=== PATIENT | male | born 1995 | race Caucasian/White ===

== ENCOUNTER 2019-03-21 14:26 | Emergency (ER) | payer OTHER ==
[~2019-03-21] VITALS: Ht 172.7 cm; Wt 63.5 kg
[2019-03-21 14:51] VITALS: BP 125/72
--- NOTE | 2019-03-21 15:37 | NUR ---
Patient discharged to home in stable condition. Written and verbal after care instructions given. Patient verbalizes understanding of instruction.
== END 2019-03-21 15:37 | disposition home or self-care (01) ==
LOC: ER 14:26
DX: H61.22 Impacted cerumen, left ear (principal)

== ENCOUNTER 2019-05-31 12:44 | Emergency (ER) | payer OTHER ==
[~2019-05-31] VITALS: Ht 175.3 cm; Wt 57.6 kg
--- NOTE | 2019-05-31 12:45 | NUR ---
Souleymane bennett in [facility] - 05/31/19 at [address] PERSAUD AT BEDSIDE
--- NOTE | 2019-05-31 12:54 | NUR ---
Patient arrived at unit ambulatory. a/o x 4, no acute distress. c/o left shoulder pain, reports he had a syncopal episode 3am today, chin abrasion, per patient it happens once every 3 years.
--- NOTE | 2019-05-31 12:57 | NUR ---
FRACISCO MORALES AT BEDSIDE
[2019-05-31 13:22] LABS: BASOPHILS % (AUTO) 0.4 % (0.0-2.0); EOSINOPHILS % (AUTO) 0.3 % (0.0-6.0); HEMATOCRIT 47 % (39-51); HEMOGLOBIN 16.2 g/dL (13.5-17.5); LYMPHOCYTES % (AUTO) 9.2 % (20.0-44.0); MEAN CORPUSCULAR HGB CONC 34 g/dl (31.0-36.0); MEAN CORPUSCULAR VOLUME 88 fL (80-96); MONOCYTES # (AUTO) 0.9 /CMM (0.1-1.30); MONOCYTES % (AUTO) 8.3 % (2.0-12.0); NEUTROPHILS # (AUTO) 8.5 /CMM (1.8-8.9); NEUTROPHILS % (AUTO) 81.8 % (43.0-81.0); PLATELET COUNT (AUTO) 273 /CMM (150-450); RED BLOOD CELL COUNT(AUTO) 5.37 MIL/uL (4.5-6.0); WHITE BLOOD COUNT (AUTO) 10.4 K/uL (4.3-11.0)
--- NOTE | 2019-05-31 13:25 | NUR ---
UNLOAD ASSOCIATE AT BEDSIDE
[2019-05-31] MEDS ORDERED: IV NS 0.9% 1,000 ML BAG IV ONE (13:30)
[2019-05-31 13:35] LABS: CALCIUM, SERUM 9.1 mg/dL (8.5-10.1); CREATININE 0.9 mg/dL (0.6-1.3); POTASSIUM 3.9 mmol/L (3.5-5.1)
--- NOTE | 2019-05-31 13:55 | NUR ---
SHOULDER SLING APPLIED BY AIR CONDITIONING MECH[employer]IC [employer]RIAL.
[2019-05-31 13:56] VITALS: BP 124/78
--- NOTE | 2019-05-31 13:56 | NUR ---
IV removed. Catheter intact and site benign. Pressure and 4x4 applied to site. No bleeding noted. Patient discharged to home in stable condition. Written and verbal after care instructions given. Patient verbalizes understanding of instruction.
== END 2019-05-31 13:59 | disposition home or self-care (01) ==
LOC: ER 12:49
DX: S00.81XA Abrasion of other part of head, initial encounter (principal); M25.512 Pain in left shoulder; R55 Syncope and collapse; W18.39XA Other fall on same level, initial encounter; Y93.89 Activity, other specified; Y92.89 Other specified places as the place of occurrence of the external cause; Y99.8 Other external cause status
CPT/HCPCS: 36415; 73030; 80048; 85025; 93005; 96360; 99284; J7030

== ENCOUNTER 2019-10-23 00:47 | Emergency (ER) | payer OTHER ==
[~2019-10-23] VITALS: Ht 172.7 cm; Wt 63.5 kg
--- NOTE | 2019-10-23 00:50 | NUR ---
PT AAOX4. BIB S/O C/O XANAX 1MG TAB APPROX 40TABS AND POSSIBLE HEROIN USE PER S/O. PT STATED HE WAS UNDER DOSED AND WOULD LIKE A PRESCRIPTION FOR MORE XANAX. PLACED ON MONITOR AND PULSE OX. NO NEURO DEFICITI, ABLE TO AMBULATE AND SPEAK IN FULL SENTENCES.
--- NOTE | 2019-10-23 01:02 | NUR ---
[facility]
[2019-10-23 01:19] LABS: BASOPHILS % (AUTO) 0.3 % (0.0-2.0); EOSINOPHILS % (AUTO) 1.6 % (0.0-6.0); HEMATOCRIT 41 % (39-51); HEMOGLOBIN 13.7 g/dL (13.5-17.5); LYMPHOCYTES # (AUTO) 1.6 /CMM (0.8-4.8); LYMPHOCYTES % (AUTO) 30.6 % (20.0-44.0); MEAN CORPUSCULAR HGB CONC 34 g/dl (31.0-36.0); MEAN CORPUSCULAR VOLUME 88 fL (80-96); MONOCYTES # (AUTO) 0.5 /CMM (0.1-1.30); MONOCYTES % (AUTO) 8.9 % (2.0-12.0); NEUTROPHILS % (AUTO) 58.6 % (43.0-81.0); PLATELET COUNT (AUTO) 210 /CMM (150-450); RED BLOOD CELL COUNT(AUTO) 4.63 MIL/uL (4.5-6.0); WHITE BLOOD COUNT (AUTO) 5.1 K/uL (4.3-11.0)
--- NOTE | 2019-10-23 01:30 | NUR ---
AWAITING URINE SAMPLE FROM PT.
[2019-10-23 01:42] LABS: CALCIUM, SERUM 8.7 mg/dL (8.5-10.1); CARBON DIOXIDE 31 mmol/L (21-32); CHLORIDE 103 mmol/L (98-107); CREATININE 0.9 mg/dL (0.6-1.3); GLUCOSE 96 mg/dL (74-106); SODIUM SERUM 140 mmol/L (136-145); UREA NITROGEN, BLOOD 7 mg/dL (7-18)
[2019-10-23 01:51] LABS: ALANINE AMINOTRANSFERASE 28 U/L (12-78); ALBUMIN 3.7 g/dL (3.4-5.0); ALCOHOL, BLOOD < 3 mg/dL (0-0); ALKALINE PHOSPHATASE 52 U/L (46-116); ASPARTATE AMINOTRANSFERASE 20 U/L (15-37); BILIRUBIN,DIRECT 0.1 mg/dL (0.0-0.2); BILIRUBIN,TOTAL 0.4 mg/dL (0.2-1.0); TOTAL PROTEIN, SERUM 6.9 g/dL (6.4-8.2)
[2019-10-23 01:52] LABS: ACETAMINOPHEN < 2 ug/ml (10-30); SALICYLATE 0.4 mg/dL (2.8-20.0)
--- NOTE | 2019-10-23 02:10 | NUR ---
PT AMBULATING TO RESTROOM BACK AND FORTH, UNABLE TO PROVIDE URINE.
--- NOTE | 2019-10-23 03:12 | NUR ---
URINE SENT TO LAB
[2019-10-23 03:28] LABS: APPEARANCE,URINE Slightly Cloudy (CLEAR); BILIRUBIN,URINE Negative (NEGATIVE); BLOOD, URINE Negative Ery/uL (NEGATIVE); COLOR,URINE Yellow (YELLOW); KETONES,URINE Negative (NEGATIVE); LEUKOCYTE ESTERASE ,URINE Negative (NEGATIVE); NITRITE, URINE Negative (NEGATIVE); PH,URINE 7.5 (5.0-8.0); PROTEIN,URINE Negative (NEGATIVE); UGLUCOSE Negative (NEGATIVE); UROBILINOGEN,URINE 0.2 EU/dL (0.2)
--- NOTE | 2019-10-23 04:18 | NUR ---
Patient is resting comfortably in bed with eyes closed. Easily aroused. VSS
--- NOTE | 2019-10-23 04:45 | NUR ---
ATTEMPTED TO CONTACT MARIELA BOSE FOR EVALUATION, WILL FOLLOW UP
--- NOTE | 2019-10-23 05:20 | NUR ---
AWAITING JUICE FROM CRISIS TEAM
--- NOTE | 2019-10-23 07:34 | NUR ---
JUICE FROM CRISIS AT BEDSIDE
--- NOTE | 2019-10-23 07:54 | NUR ---
PT IS CLEARED BY JUICE CRISIS JEWELRY SALES ASSOCIATE, PT BECOMES AGGRESSIVE TOWARDS STAFF, CATE GASTELUM ASK PT TO STOP USING THE PHONE START CURSING TOWARDS STAFF. CALLED SECURITY TO ESCORT OUTSIDE HOSPITAL.
--- NOTE | 2019-10-23 07:58 | NUR ---
Patient discharged to home in stable condition. Written and verbal after care instructions given.
[2019-10-23 07:59] VITALS: BP 118/68
== END 2019-10-23 08:00 | disposition home or self-care (01) ==
LOC: ER 01:07
DX: T42.4X2A Poisoning by benzodiazepines, intentional self-harm, initial encounter (principal); Y92.89 Other specified places as the place of occurrence of the external cause
CPT/HCPCS: 36415; 80048; 80076; 80305; 80307; 80329; 81001; 85025; 99283; G0480; 81000-TC